=== PATIENT | female | born 1985 | race Caucasian/White ===

== ENCOUNTER 2023-10-31 17:08 | Emergency (ER) | payer OTHER ==
[~2023-10-31] VITALS: Ht 160 cm; Wt 69.4 kg
[2023-10-31 17:40] VITALS: BP 136/93; PULSE 112; RESP 20; TEMP 97.9; O2SAT 99
[2023-10-31] MEDS: NACL 0.9% 1,000 ML IV ONE (19:21)
[2023-10-31 19:22] LABS: BASOPHILS # (AUTO) 0.1 K/uL (0.00-0.22); BASOPHILS % (AUTO) 0.6 % (0.0-2.0); EOSINOPHILS % (AUTO) 0.3 % (0.0-4.0); HEMATOCRIT 44.5 % (36-48); HEMOGLOBIN 15.1 g/dL (12.0-16.0); LYMPHOCYTES # (AUTO) 2.2 K/uL (2.5-16.5); LYMPHOCYTES % (AUTO) 22.3 % (20.5-51.1); MEAN CORPUSCULAR HEMOGLOBIN 30 pg (27-31); MEAN CORPUSCULAR HGB CONC 34 g/dL (33-37); MEAN CORPUSCULAR VOLUME 88.8 fL (80-94); MONOCYTES # (AUTO) 0.6 K/uL (0.8-1.0); MONOCYTES % (AUTO) 6.4 % (1.7-9.3); NEUTROPHILS # (AUTO) 6.9 K/uL (1.8-7.7); NEUTROPHILS % (AUTO) 70.4 % (42.2-75.2); PLATELET COUNT (AUTO) 285 K/uL (140-450); RED BLOOD CELL COUNT(AUTO) 5.01 MIL/uL (4.20-5.40); RED CELL DISTRIBUTION WIDTH 13.2 % (11.6-13.7); WHITE BLOOD COUNT (AUTO) 9.8 K/uL (4.8-10.8)
[2023-10-31] MEDS: MORPHINE SULFATE 4 MG/ML SYR IVP ONE ×2 (19:30→20:56)
[2023-10-31 19:37] LABS: ANION GAP 14.7 (8-16); CALCIUM 9.3 mg/dL (8.5-10.1); CARBON DIOXIDE 26.5 mmol/L (21-32); POTASSIUM 3.2 mmol/L (3.5-5.1)
[2023-10-31] MEDS: ONDANSETRON 4 MG/2 ML VIAL IVP ONE (20:18)
[2023-10-31] MEDS ORDERED: CYCL-711 PO (20:31)
[2023-10-31] MEDS ORDERED: LID5T TP (20:31)
[2023-10-31] MEDS ORDERED: NAPR-1704 PO (20:31)
[2023-10-31] MEDS ORDERED: ACET-2619 PO (20:31)
[2023-10-31 22:30] VITALS: BP 136/93; PULSE 68; RESP 13; TEMP 97.9
[2023-10-31 22:34] VITALS: O2SAT 99
== END 2023-10-31 22:30 | disposition home or self-care (01) ==
LOC: MED 17:08
DX: S00.03XA Contusion of scalp, initial encounter (principal); R10.9 Unspecified abdominal pain; Z79.899 Other long term (current) drug therapy; Y08.89XA Assault by other specified means, initial encounter; Y93.89 Activity, other specified; Y92.89 Other specified places as the place of occurrence of the external cause; Y99.8 Other external cause status
CPT/HCPCS: 36415; 70450; 74177; 80048; 81025; 85025; 96361; 96374; 96375; 96376; 99285; J2270; J2405; J7030; Q9967